=== PATIENT | female | born 1975 | race Caucasian/White ===

== ENCOUNTER 2021-07-18 09:41 | Emergency (ER) | payer MEDICARE, MEDICAID ==
[2021-07-18] MEDS ORDERED: Cyclobenzaprine 10 MG Tab PO STA (10:10)
[2021-07-18] MEDS ORDERED: Ketorolac 30 MG/ML SDV IM STA (10:10)
[2021-07-18] MEDS ORDERED: traMADol 50 MG Tab PO STA (10:10)
--- NOTE | 2021-07-18 10:18 | EDM.PDOC ---
ED HPI GENERAL MEDICAL PROBLEM - General Stated Complaint: BACK PAIN Time Seen by Provider: 07/18/21 10:00 Source of Information: Reports: Patient History Limitations: Reports: No Limitations - History of Present Illness INITIAL COMMENTS - FREE TEXT/NARRATIVE: Patient presented to the ED because of upper back pain which started yesterday. Took OTC tylenol and is not helpin. She rate it at 7/10 and worse with movements. - Related Data Allergies Allergy/AdvReac Type Severity Reaction Status Date / Time cephalexin [From Keflex] Allergy Hives Verified 01/31/21 13:59 bandaids Allergy Unknown Rash Uncoded 02/03/21 07:11 cats Allergy Unknown unknown Uncoded 01/31/21 13:59 Home Meds: Home Meds DULoxetine [Cymbalta] 60 mg PO DAILY 10/14/18 [History] Pantoprazole [ProTONIX] 40 mg PO DAILY 10/14/18 [History] Albuterol [Ventolin HFA] 1 - 2 puff INH Q4H PRN 01/31/21 [History] Celecoxib [CeleBREX] 200 mg PO DAILY 01/31/21 [History] Etonogestrel [Nexplanon] 68 mg SQ ASDIRECTED 01/31/21 [History] Fluticasone Propion/Salmeterol [Advair Hfa 45-21 Mcg Inhaler] 1 puff INH DAILY 01/31/21 [History] Loratadine 10 mg PO DAILY PRN 01/31/21 [History] Losartan Potassium [Cozaar] 100 mg PO DAILY 01/31/21 [History] Metoprolol Succinate 100 mg PO DAILY 01/31/21 [History] Potassium Chloride 10 meq PO DAILY 01/31/21 [History] hydroCHLOROthiazide [Hydrochlorothiazide] 25 mg PO DAILY 01/31/21 [History] Calcium Carbonate [Calcium] 600 mg PO DAILY 02/03/21 [History] Cholecalciferol (Vitamin D3) [Vitamin D3] 250 mcg PO DAILY 02/03/21 [History] Cyanocobalamin (Vitamin B-12) [Vitamin B-12] 2,500 mcg PO DAILY 02/03/21 [History] Iron 65 mg PO DAILY 02/03/21 [History] Pedi Mv No.79/Ferrous Fumarate [Flintstones with Iron Tab Chew] 1 tab PO DAILY 02/03/21 [History] Vitamin A 3,000 mcg PO DAILY 02/03/21 [History] Vitamin B Complex 1 tab PO DAILY 02/03/21 [History] Cyclobenzaprine [Flexeril] 10 mg PO TID #15 tab 07/18/21 [Rx] traMADol [Ultram] 100 mg PO Q8H PRN #15 tab 07/18/21 [Rx] Past Medical History HEENT History: Reports: Allergic Rhinitis, Other (See Below) Other HEENT History: wears glasses Cardiovascular History: Reports: High Cholesterol, Hypertension Respiratory History: Reports: Asthma, Sleep Apnea Gastrointestinal History: Reports: GERD, Hemorrhoids Genitourinary History: Reports: Urinary Incontinence, UTI, Recurrent DEPUTY MANAGER History: Reports: Polycystic Ovaries, Musculoskeletal History: Reports: Back Pain, Chronic, Fibromyalgia, Neck Pain, Chronic Psychiatric History: Reports: Anxiety, Depression Endocrine/Metabolic History: Reports: Obesity/BMI 30+ Dermatologic History: Reports: Cellulitis - Infectious Disease History Infectious Disease History: Reports: Chicken Pox, MRSA, Shingles - Past Surgical History GI Surgical History: Reports: EGD, Other (See Below) Other GI Surgeries/Procedures: gastric polyps Female Surgical History: Reports: Breast Biopsy, Section, D&C Musculoskeletal Surgical History: Reports: Other (See Below) Other Musculoskeletal Surgeries/Procedures:: bilat knee injections Social & Family History - Caffeine Use Caffeine Use: Reports: Coffee Caffeine Use Comment: quit caffeine use 1 wk ago ED ROS GENERAL - Review of Systems Review Of Systems: See Below Constitutional: Reports: No Symptoms HEENT: Reports: No Symptoms Respiratory: Reports: No Symptoms Cardiovascular: Reports: No Symptoms Endocrine: Reports: No Symptoms GI/Abdominal: Reports: No Symptoms : Reports: No Symptoms Musculoskeletal: Reports: Back Pain Skin: Reports: No Symptoms Neurological: Reports: No Symptoms ED EXAM, UPPER BACK/NECK PAIN - Physical Exam Exam: See Below Exam Limited By: No Limitations General Appearance: Alert, No Apparent Distress Ears Exam: Normal External Exam, Normal Canal, Hearing Grossly Normal, Normal TMs Nose Exam: Normal Inspection, Normal Mucousa, No Blood Throat/Mouth Exam: Normal Inspection, Normal Lips, Normal Teeth, Normal Gums, Normal Oropharynx, Normal Voice Head Exam: Atraumatic, Normocephalic Neck Exam: Non-Tender, Full Range of Motion, Normal Alignment, Normal Inspection Nexus Criteria: Posterior, Midline Cervical Tenderness, Evidence of Intoxication Cardiovascular/Respiratory: Regular Rate, Rhythm, No M/R/G, Normal Peripheral Pulses, Normal Breath Sounds GI/Abdominal: Normal Bowel Sounds, Soft, Non-Tender, No Organomegaly, No Distention, No Abnormal Bruit, No Mass, Pelvis Stable Back Exam: Normal Inspection, Full Range of Motion, Muscle Spasm, Paraspinal Tenderness, Vertebral Tenderness Extremities: Normal Inspection, Non-Tender, No Pedal Edema, Normal Capillary Refill Neurologic: charter pilot II-XII nml As Tested, No Motor/Sensory Deficits, Alert, Normal Mood/Affect, Oriented x 3 Course - Vital Signs Text/Narrative:: Toradol 60 mg IM x1 Tramadol 100 mg PO x1 Flexeril 10 mg PO x1 - Orders/Labs/Meds Meds: Medications Discontinued Medications Generic Name Dose Route Start Last Admin Trade Name Freq PRN Reason Stop Dose Admin Cyclobenzaprine HCl 10 mg 07/18/21 10:10 Cyclobenzaprine 10 Mg Tab PO 07/18/21 10:11 NOW STA Ketorolac Tromethamine 60 mg 07/18/21 10:10 Ketorolac 30 Mg/Ml Sdv IM 07/18/21 10:11 NOW STA Tramadol HCl 100 mg 07/18/21 10:10 Tramadol 50 Mg Tab PO 07/18/21 10:11 NOW STA Departure - Departure Time of Disposition: 10:30 Disposition: Home, Self-Care 01 Condition: Good Clinical Impression: Thoracic sprain - Discharge Information Prescriptions: Cyclobenzaprine [Flexeril] 10 mg PO TID #15 tab traMADol [Ultram] 100 mg PO Q8H PRN #15 tab PRN Reason: Pain Instructions: Thoracic Strain, [id number] Referrals: Yanet Herrera NP [Primary Care Provider] - Additional Instructions: Please read discharge instruction son thoracic jasen Aply ice or heat whichever you prefer Take all the following medicines at the same time for better pain relief: Tramadol 100 mg, tylenol 1000 mg, flexeril 10 mg every 8 hours as needed for pain and spasm Follow up as needed
== END 2021-07-18 10:30 | disposition home or self-care (01) ==
LOC: FB.ED 09:41
DX: S23.3XXA Sprain of ligaments of thoracic spine, initial encounter (principal); E78.00 Pure hypercholesterolemia, unspecified; I10 Essential (primary) hypertension; K21.9 Gastro-esophageal reflux disease without esophagitis; E66.9 Obesity, unspecified; Z68.43 Body mass index [BMI] 50.0-59.9, adult; Z88.1 Allergy status to other antibiotic agents; Z91.048 Other nonmedicinal substance allergy status; Z91.09 Other allergy status, other than to drugs and biological substances; X50.0XXA Overexertion from strenuous movement or load, initial encounter
CPT/HCPCS: 96372; 99283; A9270; J1885

== ENCOUNTER 2023-01-20 23:41 | Emergency (ER) | payer OTHER, MEDICARE, MEDICAID | END 2023-01-21 01:02 | disposition home or self-care (01) | LOC: FB.ED 23:41 | DX: M25.561 Pain in right knee (principal); I10 Essential (primary) hypertension; J45.909 Unspecified asthma, uncomplicated; K21.9 Gastro-esophageal reflux disease without esophagitis; E66.9 Obesity, unspecified; Z68.32 Body mass index [BMI] 32.0-32.9, adult; Z98.84 Bariatric surgery status; Z79.899 Other long term (current) drug therapy; Z98.890 Other specified postprocedural states; Z88.1 Allergy status to other antibiotic agents; Z91.048 Other nonmedicinal substance allergy status; W00.0XXA Fall on same level due to ice and snow, initial encounter; Y92.89 Other specified places as the place of occurrence of the external cause; Y99.0 Civilian activity done for income or pay | CPT/HCPCS: 73562-RT; 99283 ==